=== PATIENT | female | born 2000 | race Two or more races ===

== ENCOUNTER 2024-02-08 12:32 | Emergency (ER) | payer OTHER ==
[~2024-02-08] VITALS: Ht 175.3 cm; Wt 47.2 kg
[2024-02-08 13:47] VITALS: BP 111/65; PULSE 73; RESP 18; TEMP 98.1; O2SAT 100
== END 2024-02-08 14:30 | disposition home or self-care (01) ==
LOC: ER 12:32
DX: O26.891 Other specified pregnancy related conditions, first trimester (principal); R10.2 Pelvic and perineal pain; Z32.01 Encounter for pregnancy test, result positive; Z3A.01 Less than 8 weeks gestation of pregnancy
CPT/HCPCS: 36415; 81025; 84702